=== PATIENT | female | born 1945 | race Caucasian/White ===

== ENCOUNTER 2017-04-30 14:23 | Outpatient (CLI) | payer MEDICARE, OTHER ==
--- NOTE | 2017-04-30 16:57 | XRAY Report ---
ONE VIEW PELVIS, LEFT HIP: 04/30/2017 CLINICAL HISTORY: Hip pain. FINDINGS: The osseous structures are demineralized which does limit full characterization of the bon y cortices. There is no definite acute fracture or focus of destruction. Mild degenerative changes are noted about both hips with early axial migration of the femoral heads r elative to the acetabuli. The SI joint spaces are preserved. The visualized sacral ala are intact. Vascular calcifications are incidental. IMPRESSION: 1. DIFFUSE BONY DEMINERALIZATION DOES LIMIT FULL CHARACTERIZATION OF THE CORTICES. CONSIDER CROSS-SEC TIONAL IMAGING IF THERE IS CONCERN FOR AN OCCULT FRACTURE. 2. MILD DEGENERATIVE CHANGES NOTED ABOVE. JOB #: [id number] EXT JOB #:[id number]
== END 2017-04-30 14:24 | disposition home or self-care (01) ==
LOC: DI.S 14:23
PROVIDERS: ATTEND Nurse Practitioner Family
DX: M16.0 Bilateral primary osteoarthritis of hip (principal); M81.0 Age-related osteoporosis without current pathological fracture

== ENCOUNTER 2017-05-09 10:50 | Outpatient (CLI) | payer MEDICARE, OTHER ==
--- NOTE | 2017-05-09 11:45 | XRAY Report ---
LEFT HIP AND PELVIS: 05/09/2017 CLINICAL INDICATION: Left hip pain. COMPARISON: 04/30/2017. FINDINGS: Frontal view of the hips and pelvis and frogleg lateral view of the left hip demonstrate s table mild osteoarthritis. There is no evidence of fracture. No periosteal reaction is seen. IMPRESSION: STABLE MILD OSTEOARTHRITIS. NO SIGNIFICANT INTERVAL CHANGE. JOB #: [id number] EXT JOB #:[id number]
== END 2017-05-09 10:51 | disposition home or self-care (01) ==
LOC: DI.S 10:50
PROVIDERS: ATTEND Nurse Practitioner Family
DX: M25.552 Pain in left hip (principal); M16.12 Unilateral primary osteoarthritis, left hip

== ENCOUNTER 2017-06-11 09:46 | Outpatient (CLI) | payer MEDICARE, OTHER ==
--- NOTE | 2017-06-11 10:59 | Ultrasound Report ---
RIGHT UPPER QUADRANT ULTRASOUND: 06/11/2017 CLINICAL INDICATION: Pain. TECHNIQUE: Real-time scanning was performed with union representative static images obtained. FINDINGS: The liver measures 14.7 cm. There is focal fatty infiltration at the gallbladder fossa. No intrahepatic biliary dilatation or suspicious mass is seen. The common bile duct measures 5 mm. There is sludge within the gallbladder lumen. No cholelithiasis or wall thickening is seen. No free fluid is present. There was localized tenderness during the examination over the gallbladder. The right kidney measures 9.5 cm, and demonstrates no hydronephrosis. No free fluid is present. IMPRESSION: SLUDGE WITHIN THE GALLBLADDER, BUT NO EVIDENCE OF CHOLELITHIASIS OR BILIARY OBSTRUCTION. JOB #: [id number] EXT JOB #:[id number]
== END 2017-06-11 09:47 | disposition home or self-care (01) ==
LOC: DI 09:46
PROVIDERS: ATTEND Family Medicine
DX: R10.11 Right upper quadrant pain (principal)
CPT/HCPCS: 76705

== ENCOUNTER 2018-06-18 13:56 | Outpatient (CLI) | payer MEDICARE, OTHER ==
--- NOTE | 2018-06-22 15:36 | Mammography Report ---
Reason: SCREENING MAMMO Procedure Date: 06/18/2018 Accession Number: [id number] / [id number] Procedure: SONIYA - Screening Mammo Dig Bilat CPT Code: FULL RESULT: EXAM: Screening Mammo Dig Bilat DATE: 06/18/2018 2:24 PM CLINICAL HISTORY: 72-year-old female presents for screening mammogram. TECHNIQUE: Bilateral CC and MLO views were obtained. COMPARISON: 05/09/2016, 11/02/2013, 07/22/2012, 07/09/2011. FINDINGS: The breasts demonstrate heterogeneously dense fibroglandular parenchyma bilaterally. Coarse typically benign calcifications are seen in the left breast. No suspicious masses, clustered microcalcifications, or regions of architectural distortion are identified. IMPRESSION: Benign findings RECOMMENDATION: Routine annual screening unless otherwise clinically indicated. BIRADS CATEGORY 2: Benign findings STANDARD QUALIFYING STATEMENTS: 1. This examination was not reviewed with the aid of Computer-Aided Detection (CAD). 2. A negative or benign imaging report should not delay biopsy if clinically suspicious findings are present. Consider surgical consultation if warrented. More than 5% of cancers are not identified by imaging. 3. Dense breasts may obscure an underlying neoplasm. 4. This examination was reviewed without the aid of 3D breast imaging (tomosynthesis).
== END 2018-06-18 13:57 | disposition home or self-care (01) ==
LOC: DI 13:56
PROVIDERS: ATTEND Family Medicine
DX: Z12.31 Encounter for screening mammogram for malignant neoplasm of breast (principal)
CPT/HCPCS: 77067

== ENCOUNTER 2019-01-20 12:10 | Outpatient (CLI) | payer MEDICARE, OTHER ==
[2019-01-20 12:30] LABS: BASOPHILS # (AUTO) 0.2 10^3/uL (0.0-0.1); BASOPHILS % (AUTO) 2.2 %; EOSINOPHILS # (AUTO) 0.6 10^3/uL (0.0-0.7); EOSINOPHILS % (AUTO) 6.7 %; HGB - HEMOGLOBIN 14.2 g/dL (12.0-16.0); LYMPHOCYTES % (AUTO) 23.1 %; MEAN CORPUSCULAR HEMOGLOBIN 29.8 pg (27.0-31.0); MEAN CORPUSCULAR VOLUME 90.4 fL (81.0-99.0); MEAN PLATELET VOLUME 8.4 fL (7.9-10.8); MONOCYTES # (AUTO) 0.6 10^3/uL (0.0-1.0); MONOCYTES % (AUTO) 7.3 %; NEUTROPHILS # (AUTO) 5.4 10^3/uL (1.5-6.6); NEUTROPHILS % (AUTO) 60.7 %; PLT - PLATELET COUNT 285 10^3/uL (130-450); RED BLOOD COUNT 4.75 10^6/uL (4.20-5.40); RED CELL DISTRIBUTION WIDTH 13.2 % (12.0-15.0); WHITE BLOOD COUNT 8.8 x10^3/uL (4.8-10.8)
[2019-01-20 12:46] LABS: ALBUMIN 4.1 g/dL (3.2-5.5); ALBUMIN/GLOBULIN RATIO 1.1 (1.0-2.2); BILIRUBIN,TOTAL 0.6 mg/dL (0.2-1.0); CALCIUM 9.5 mg/dL (8.5-10.3); CREATININE 0.8 mg/dL (0.4-1.0)
== END 2019-01-20 12:11 | disposition home or self-care (01) ==
LOC: LAB 12:10
PROVIDERS: ATTEND Internal Medicine Gastroenterology
DX: R10.10 Upper abdominal pain, unspecified (principal)
CPT/HCPCS: 36415; 80053; 83690; 85025

== ENCOUNTER 2019-01-28 08:49 | Outpatient (CLI) | payer MEDICARE, OTHER ==
--- NOTE | 2019-01-28 13:33 | Ultrasound Report ---
Reason: ABDOMINAL PAIN,UPPER UNSPEC Procedure Date: 01/28/2019 Accession Number: [id number] / [id number] Procedure: US - Abdomen Limited CPT Code: FULL RESULT: EXAM: ABDOMEN ULTRASOUND LIMITED, RUQ EXAM DATE: 01/28/2019 08:59 AM. CLINICAL HISTORY: Abdominal pain ,upper unspecified. COMPARISON: ABDOMEN LIMITED 06/11/2017 10:11 AM. TECHNIQUE: Real-time scanning was performed with static images obtained. FINDINGS: Liver: Normal in size and echotexture. 15.1 cm. Main portal vein flow: Hepatopetal. Gallbladder: Normal. No stones, wall thickening, or sonographic Crystal's sign. Biliary System: CBD measures 7 mm. No intrahepatic or extrahepatic ductal dilatation. Other: The visualized portions of the pancreas and the right kidney are grossly unremarkable. IMPRESSION: Normal. No cholelithiasis or cholecystitis. RADIA
== END 2019-01-28 08:50 | disposition home or self-care (01) ==
LOC: DI 08:49
PROVIDERS: ATTEND Internal Medicine Gastroenterology
DX: R10.10 Upper abdominal pain, unspecified (principal)
CPT/HCPCS: 76705

== ENCOUNTER 2019-02-12 08:43 | Outpatient (CLI) | payer MEDICARE, OTHER ==
[2019-02-12] MEDS ORDERED: SINCALIDE 5 MCG VIAL ONE (09:54)
[2019-02-12] MEDS ORDERED: SINCALIDE 1.1 MCG in SODIUM CHLORIDE 0.9% 50 ML IV ONE (12:06)
--- NOTE | 2019-02-12 14:53 | Nuclear Medicine Report ---
Reason: ABDOMINAL PAIN,UPPER,UNSPEC Procedure Date: 02/12/2019 Accession Number: [id number] / [id number] Procedure: NM - Hepatobiliary HIDA w/ Rx CPT Code: FULL RESULT: EXAM: HEPATOBILIARY SCAN WITH CCK/KINEVAC ADMINISTRATION EXAM DATE: 02/12/2019 12:08 PM. CLINICAL HISTORY: ABDOMINAL PAIN,UPPER,UNSPEC. COMPARISON: None. TECHNIQUE: Following the intravenous administration of mCi of Tc99m Mebrofenin, a hepatobiliary scan was done centered on the liver and gallbladder in multiple sequential images and projections. Following the intravenous administration of mcg of CCK/ Kinevac over the course of approximately 60 minutes, dynamic imaging was done and the gallbladder ejection fraction was calculated. FINDINGS: Normal clearance of blood pool activity indicating grossly normal hepatocellular function. Liver size and shape grossly normal. Appearance of tracer in the biliary tree as early as 5-10 minutes, within normal limits. Appearance of tracer in the gallbladder as early as 10-15 minutes, within normal limits, with good progression of filling throughout the remainder of the initial hour. Appearance of tracer in the small bowel as early as 15-20 minutes. Following CCK administration, gallbladder ejection fraction is calculated to be 96%, within the normal range ( No evidence of significant enterogastric bile reflux. IMPRESSION: 1. No scintigraphic evidence of acute cholecystitis. 2. Patent common bile duct. 3. Gallbladder ejection fraction is in the normal range. RADIA ADDENDUM: 02/12/19 16:10 Corrected TECHNIQUE: 1.1 mcg CCK was administered intravenously.
== END 2019-02-12 08:44 | disposition home or self-care (01) ==
LOC: DI 08:43
PROVIDERS: ATTEND Internal Medicine Gastroenterology
DX: R10.10 Upper abdominal pain, unspecified (principal)
CPT/HCPCS: 78227; J7040

== ENCOUNTER 2019-02-20 12:22 | Outpatient (CLI) | payer MEDICARE, OTHER ==
[2019-02-20] MEDS ORDERED: IOVERSOL 320 100 ML VIAL IVP ONE (12:47)
[2019-02-20] MEDS ORDERED: IOVERSOL 320 50 ML VIAL ONE (12:47)
--- NOTE | 2019-02-20 23:13 | CT Report ---
Reason: ABDOMINAL PAIN,UPPER,UNSPEC Procedure Date: 02/20/2019 Accession Number: [id number] / [id number] Procedure: CT - Abdomen/Pelvis W CPT Code: FULL RESULT: EXAM: CT ABDOMEN AND PELVIS EXAM DATE: 02/20/2019 02:12 PM. CLINICAL HISTORY: Upper abdominal pain, unspecified. COMPARISONS: ABDOMEN LIMITED 01/28/2019 8:59 AM. TECHNIQUE: Routine helical CT imaging was performed through the abdomen and pelvis. IV contrast: Yes . Enteric contrast: Yes. Reconstructions: Coronal and sagittal. In accordance with CT protocol optimization, one or more of the following dose reduction techniques were utilized for this exam: automated exposure control, adjustment of mA and/or KV based on patient size, or use of iterative reconstructive technique. FINDINGS: Lung Bases: Unremarkable. Liver: Unremarkable. No suspicious masses. Gallbladder/Bile Ducts: Unremarkable. Spleen: Unremarkable. Pancreas: Unremarkable. Adrenal Glands: Unremarkable. Kidneys: Mild bilateral renal scarring. No suspicious masses or hydronephrosis. Peritoneal Cavity/Bowel: Colonic diverticulosis. No bowel obstruction or inflammatory process seen. No free air or significant free fluid. No masses or adenopathy. The appendix is not seen but there is no evidence of appendicitis. No excessive stool burden. Pelvic Organs: Partially obscured by streak artifact. Post hysterectomy with no adnexal masses seen. The bladder appears within normal limits. Pelvic floor laxity with small rectocele suspected. Vasculature: Severe atherosclerotic disease of the aorta and branches. Mild fusiform aneurysmal dilatation of the infrarenal abdominal aorta up to 28 x 27 mm. Bones: No acute or aggressive appearing abnormality. Previous left hip replacement. Other: None. IMPRESSION: 1. No acute inflammatory or obstructive process seen in the abdomen or pelvis. 2. Severe atherosclerotic disease of the aorta and branches. Mild aneurysmal ectasia of the infrarenal abdominal aorta to 2.8 cm. 3. Colonic diverticulosis. 4. Probable previous hysterectomy. RADIA
== END 2019-02-20 12:23 | disposition home or self-care (01) ==
LOC: DI 12:22
PROVIDERS: ATTEND Internal Medicine Gastroenterology
DX: R10.10 Upper abdominal pain, unspecified (principal); I70.0 Atherosclerosis of aorta; I71.4 Abdominal aortic aneurysm, without rupture; K57.30 Diverticulosis of large intestine without perforation or abscess without bleeding
CPT/HCPCS: 74177; Q9967

== ENCOUNTER 2019-07-15 09:59 | Outpatient (CLI) | payer MEDICARE, OTHER, MEDICAID ==
--- NOTE | 2019-07-16 13:45 | Mammography Report ---
Reason: SCREENING MAMMO Procedure Date: 07/15/2019 Accession Number: [id number] / [id number] Procedure: MGS - Screening Mammo Dig Bilat CPT Code: Final Report FULL RESULT: EXAM: Screening Mammo Dig Bilat DATE: 07/15/2019 10:59 AM CLINICAL HISTORY: Routine screening TECHNIQUE: (B) - Bilateral CC and MLO views were obtained. COMPARISON: 06/18/2018, 05/09/2016, 11/02/2013, 07/22/2012, 07/09/2011 PARENCHYMAL PATTERN: (D) - The breasts demonstrate heterogeneously dense fibroglandular parenchyma bilaterally. FINDINGS: No significant interval change. There are no suspicious masses, calcifications, or areas of distortion. IMPRESSION: Negative examination. BI-RADS category 1. RECOMMENDATION: (ANNUAL) - Recommend routine annual screening mammography. BI-RADS CATEGORY: (1) - Negative. STANDARD QUALIFYING STATEMENTS: 1. This examination was not reviewed with the aid of Computer-Aided Detection (CAD). 2. A negative or benign imaging report should not preclude biopsy if clinically suspicious findings are present. 3. Dense breasts may obscure an underlying neoplasm. 4. This examination was reviewed without the aid of 3D breast imaging (tomosynthesis).
== END 2019-07-15 10:00 | disposition home or self-care (01) ==
LOC: DI.S 09:59
PROVIDERS: ATTEND Family Medicine
DX: Z12.31 Encounter for screening mammogram for malignant neoplasm of breast (principal)
CPT/HCPCS: 77067

== ENCOUNTER 2019-07-15 10:25 | Outpatient (CLI) | payer MEDICARE, OTHER, MEDICAID ==
[2019-07-15 18:17] LABS: ALBUMIN 4.3 g/dL (3.2-5.5); ALBUMIN/GLOBULIN RATIO 1.3 (1.0-2.2); BILIRUBIN,TOTAL 0.7 mg/dL (0.2-1.0); CALCIUM 9.3 mg/dL (8.5-10.3); CREATININE 0.8 mg/dL (0.4-1.0); TOTAL PROTEIN 7.5 g/dL (6.7-8.2)
== END 2019-07-15 10:26 | disposition home or self-care (01) ==
LOC: LAB.S 10:25
PROVIDERS: ATTEND Internal Medicine Cardiovascular Disease
DX: I73.9 Peripheral vascular disease, unspecified (principal)
CPT/HCPCS: 36415; 80053; 80061; 82550; 83721

== ENCOUNTER 2021-01-04 15:06 | Outpatient (CLI) | payer MEDICARE, OTHER, MEDICAID ==
--- NOTE | 2021-01-05 11:57 | Ultrasound Report ---
PROCEDURE: Duplex Ext Veins Right INDICATIONS: PAIN IN RT LOWER LEG, LYMPEDEMA TECHNIQUE: Real-time imaging, as well as color and pulse Doppler interrogation, were performed of the right lowe r extremity deep veins from the inguinal ligament to the popliteal fossa. COMPARISON: 04/06/2014. FINDINGS: The deep veins are normally compressible, and free of intraluminal thrombus. Color and pu lse Doppler demonstrate normal phasic intraluminal flow. There is normal augmentation response to di stal compression maneuver. IMPRESSION: No evidence of deep vein thrombosis involving the right lower extremity. Reviewed by: Ashley Johnson MD, PhD on 01/05/2021 11:55 AM PDT Approved by: Ashley Johnson MD, PhD on 01/05/2021 11:55 AM PDT Station ID: [id number]
== END 2021-01-04 15:07 | disposition home or self-care (01) ==
LOC: DI 15:06
PROVIDERS: ATTEND Physician Assistant Medical
DX: M79.661 Pain in right lower leg (principal); I89.0 Lymphedema, not elsewhere classified

== ENCOUNTER 2021-03-20 13:04 | Outpatient (CLI) | payer MEDICARE, OTHER, MEDICAID | END 2021-03-20 13:05 | disposition EMS.NT | LOC: EMS 13:04 | DX: I10 Essential (primary) hypertension (principal) ==

== ENCOUNTER 2021-04-03 14:13 | Outpatient (CLI) | payer MEDICARE, OTHER, MEDICAID ==
[2021-04-03 20:45] LABS: CALCIUM 9.9 mg/dL (8.5-10.3); CREATININE 1.4 mg/dL (0.4-1.0); POTASSIUM 3.7 mmol/L (3.5-5.0)
== END 2021-04-03 14:14 | disposition home or self-care (01) ==
LOC: LAB.S 14:13
PROVIDERS: ATTEND Internal Medicine
DX: N18.31 Chronic kidney disease, stage 3a (principal)
CPT/HCPCS: 36415; 80048

== ENCOUNTER 2021-06-08 09:23 | Outpatient (CLI) | payer MEDICARE, OTHER, MEDICAID ==
[2021-06-08 14:42] LABS: CALCIUM 9.5 mg/dL (8.5-10.3); CREATININE 1.4 mg/dL (0.4-1.0); POTASSIUM 3.8 mmol/L (3.5-5.0)
== END 2021-06-08 09:24 | disposition home or self-care (01) ==
LOC: LAB.S 09:23
PROVIDERS: ATTEND Internal Medicine
DX: E87.1 Hypo-osmolality and hyponatremia (principal)
CPT/HCPCS: 36415; 80048

== ENCOUNTER 2021-06-20 10:51 | Outpatient (CLI) | payer MEDICARE, OTHER, MEDICAID ==
--- NOTE | 2021-06-21 11:49 | Mammography Report ---
BILATERAL DIGITAL SCREENING MAMMOGRAM 3D/2D: 06/20/2021 CLINICAL: Routine screening. Comparison is made to exams dated: 07/15/2019 mammogram, 06/18/2018 mammogram, and 05/09/2016 mammogra m - [facility]. The tissue of both breasts is heterogeneously dense. This may lowe r the sensitivity of mammography. There is a benign calcification in the left breast. No significant masses, calcifications, or other findings are seen in either breast. There has been no significant interval change. IMPRESSION: BENIGN There is no mammographic evidence of malignancy. A 1 year screening mammogram is recommended. This exam was interpreted at Station ID: [id number]. NOTE: For mammograms, a report in lay terms will be sent to the patient. Approximately 15% of breast malignancies will not be visualized mammographically. In the management of a palpable breast mass, a negative mammogram must not discourage biopsy of a clinically suspicious lesion. Electronically Signed By: Osito Morrow M.D. [email or web address]/[email or web address]:06/20/2021 16:19:32 ACR BI-RADS Category 2: Benign Finding(s) 3342F PARENCHYMAL PATTERN: (D) - The breast(s) demonstrate(s) heterogeneously dense fibroglandular parenchy ma. BI-RADS CATEGORY: (2) - 2 RECOMMENDATION: (ANNUAL) - Recommend routine annual screening mammography. [id number] 1 year screening LATERALITY: (B)
== END 2021-06-20 10:52 | disposition home or self-care (01) ==
LOC: DI.S 10:51
DX: Z12.31 Encounter for screening mammogram for malignant neoplasm of breast (principal)

== ENCOUNTER 2021-10-25 08:35 | Outpatient (CLI) | payer MEDICARE, OTHER, MEDICAID ==
[2021-10-25 15:22] LABS: ALBUMIN 3.7 g/dL (3.2-5.5); BILIRUBIN,TOTAL 0.3 mg/dL (0.2-1.0); CALCIUM 9.5 mg/dL (8.5-10.3); CREATININE 1.6 mg/dL (0.4-1.0); POTASSIUM 4.2 mmol/L (3.5-5.0); TOTAL PROTEIN 7.4 g/dL (6.7-8.2)
[2021-10-25 19:52] LABS: ESTIMATED AVERAGE GLUCOSE 134 mg/dL (70-100); HEMOGLOBIN A1c% 6.3 % (4.27-6.07)
== END 2021-10-25 08:36 | disposition home or self-care (01) ==
LOC: LAB.S 08:35
PROVIDERS: ATTEND Family Medicine
DX: E11.22 Type 2 diabetes mellitus with diabetic chronic kidney disease (principal); N18.9 Chronic kidney disease, unspecified
CPT/HCPCS: 36415; 80053; 83036

== ENCOUNTER 2021-11-30 12:30 | Outpatient (CLI) | payer MEDICARE, OTHER ==
--- NOTE | 2021-11-30 13:23 | DEXA Report ---
PROCEDURE: Dexa Spine and/or Hip INDICATIONS: OSTEOPOROSIS WITHOUT CURRENT FRACTURE TECHNIQUE: Dual energy x-ray absorptiometry (DXA) was performed on a [employer] System. Regions measur ed are the AP Spine, femoral neck, and if needed forearm. COMPARISON: None. FINDINGS: Lumbar Spine: Bone Mineral Density 1.011 g/cm/cm,T score -1.5, osteopenia Left forearm: Bone Mineral Density 0.629 g/cm/cm, T score -2.8, osteoporosis (T score greater or equal to -1.0: NORMAL) (T score from -1.1 to -2.4: OSTEOPENIA) (T score less than or equal to -2.5 to: OSTEOPOROSIS) Impression: Bone mineral density as detailed above. Patients with diagnosis of osteoporosis or osteopenia should have regular bone mineral density assess ment. For those eligible for Medicare, routine testing is allowed once every 2 years. Testing frequ ency can be increased for patients who have rapidly progressing disease or for those who are receivin g medical therapy to restore bone mass. Reviewed by: Sukhwinder Lazcano MD on 11/30/2021 1:21 PM PDT Approved by: Sukhwinder Lazcano MD on 11/30/2021 1:21 PM PDT Station ID: [id number]
== END 2021-11-30 12:31 | disposition home or self-care (01) ==
LOC: DI 12:30
PROVIDERS: ATTEND Nurse Practitioner Family
DX: M81.0 Age-related osteoporosis without current pathological fracture (principal)

== ENCOUNTER 2022-02-08 12:17 | Outpatient (CLI) | payer MEDICARE, MEDICAID ==
[2022-02-08 16:16] LABS: ALBUMIN 4.5 g/dL (3.2-5.5); CALCIUM 9.9 mg/dL (8.5-10.3); CREATININE 1.5 mg/dL (0.4-1.0); PHOSPHORUS 3.4 mg/dL (2.5-4.6); POTASSIUM 4.2 mmol/L (3.5-5.0)
[2022-02-08 16:28] LABS: CREATININE,URINE 31.2 mg/dL
[2022-02-08 16:30] LABS: TOTAL PROTEIN,URINE TIMED < 6 mg/dL
== END 2022-02-08 12:18 | disposition home or self-care (01) ==
LOC: LAB.S 12:17
PROVIDERS: ATTEND Internal Medicine Nephrology
DX: N18.32 Chronic kidney disease, stage 3b (principal)
CPT/HCPCS: 36415; 80069; 82570; 84156; 84244

== ENCOUNTER 2022-07-05 14:03 | Outpatient (CLI) | payer MEDICARE ==
[2022-07-05 19:48] LABS: CALCIUM 9.8 mg/dL (8.5-10.3); CREATININE 1.4 mg/dL (0.4-1.0); POTASSIUM 3.7 mmol/L (3.5-5.0)
== END 2022-07-05 14:04 | disposition home or self-care (01) ==
LOC: LAB.S 14:03
PROVIDERS: ATTEND Internal Medicine
DX: E87.1 Hypo-osmolality and hyponatremia (principal)
CPT/HCPCS: 36415; 80048

== ENCOUNTER 2022-08-27 12:45 | Outpatient (CLI) | payer MEDICARE, OTHER ==
--- NOTE | 2022-08-28 11:55 | Ultrasound Report ---
LIMITED ULTRASOUND OF LEFT BREAST: 08/27/2022 CLINICAL: Palpable left breast lump. Comparison is made to exams dated: 08/27/2022 mammogram, 06/20/2021 mammogram, 07/15/2019 mammogram, 06/18/2018 mammogram, 05/09/2016 mammogram, and 11/02/2013 mammogram - [facility]. Ultrasound of the left breast upper outer quadrant was performed. Stark scale images of the real-sadie e examination were reviewed. IMPRESSION: NEGATIVE There is no sonographic evidence of malignancy. There is no abnormality seen in the left breast to correspond with the area of clinical concern and m ammography finding in the upper outer quadrant, however, clinical correlation and clinical followup a re recommended. Patient was advised to return for imaging if symptoms get worse or if she feels a di screte palpable lump, which was not described today. Return to annual mammogram screening schedule is recommended. This exam was interpreted at Station ID: [id number]. Electronically Signed By: Danis Donovan M.D. lc/:08/27/2022 14:08:50 Ultrasound BI-RADS: 1 Negative BI-RADS CATEGORY: (1) - 1 Mammogram [id number] return to screening LATERALITY: (B)
--- NOTE | 2022-08-28 11:55 | Mammography Report ---
BILATERAL DIGITAL DIAGNOSTIC MAMMOGRAM 3D/2D WITH SPOT COMPRESSION: 08/27/2022 CLINICAL: Palpable left breast lump. Comparison is made to exams dated: 06/20/2021 mammogram, 07/15/2019 mammogram, 06/18/2018 mammogram, mammogram, and 11/02/2013 mammogram - [facility]. Both breasts are heterogeneously dense, which may obscure small masses (category c / 51-75% glandular tissue). There is a stable 1.1 cm oval fat containing mass with a circumscribed margin in the left breast at 1 o'clock posterior depth. This correlates as palpated. No other significant masses, calcifications, or other findings are seen in either breast. IMPRESSION: INCOMPLETE: NEEDS ADDITIONAL IMAGING EVALUATION The stable 1.1 cm oval fat containing mass in the left breast resembles a lymph node and is indetermi noel. An ultrasound is recommended. Based on the Tyrer Cuzick model (a risk assessment model) the patients lifetime risk is 2.8% and her 10 year risk is 2.5%. According to the ACR, ACS, and NCCN guidelines, an annual breast MRI exam ryan g with mammogram is recommended if the patients lifetime risk is 20% or greater. This exam was interpreted at Station ID: [id number]. NOTE: For mammograms, a report in lay terms will be sent to the patient. Approximately 15% of breast malignancies will not be visualized mammographically. In the management of a palpable breast mass, a negative mammogram must not discourage biopsy of a clinically suspicious lesion. Electronically Signed By: Danis Donovan M.D. lc/:08/27/2022 14:06:41 ACR BI-RADS Category 0: Incomplete 3340F PARENCHYMAL PATTERN: (D) - The breast(s) demonstrate(s) heterogeneously dense fibroglandular parenchy ma. BI-RADS CATEGORY: (0) - 0 Ultrasound [id number] Immediate follow-up LATERALITY: (B)
== END 2022-08-27 23:59 | disposition home or self-care (01) ==
LOC: DI 12:45
PROVIDERS: ATTEND Nurse Practitioner Family
DX: N63.21 Unspecified lump in the left breast, upper outer quadrant (principal)

== ENCOUNTER 2022-10-15 10:23 | Outpatient (CLI) | payer MEDICARE ==
--- NOTE | 2022-10-15 14:54 | XRAY Report ---
PROCEDURE: Hips 2V BILAT INDICATIONS: POST OP ASSESSMENT TECHNIQUE: 9 views of the hip were acquired. COMPARISON: CT abdomen pelvis 02/20/2019. FINDINGS: Bones: Right femur intramedullary manny with screw fixation. No conspicuous fracture. Left hip arthrop lasty is stable. No periprosthetic lucency to suggest loosening or infection. No dislocations. No perkins spicious bony lesions. The visualized pelvic ring appears intact. Arteriovascular calcifications. Soft tissues: No suspicious soft tissue calcifications or masses. IMPRESSION: Expected appearance of the right femur intramedullary manny and screw fixation. Stable left hip arthroplasty. Reviewed by: Roman Arredondo MD on 10/15/2022 2:52 PM PST Approved by: Roman Arredondo MD on 10/15/2022 2:52 PM PST Station ID: [id number]
== END 2022-10-15 10:24 | disposition home or self-care (01) ==
LOC: DI.S 10:23
PROVIDERS: ATTEND Orthopaedic Surgery
DX: Z09 Encounter for follow-up examination after completed treatment for conditions other than malignant neoplasm (principal); Z96.642 Presence of left artificial hip joint

== ENCOUNTER 2023-03-24 08:47 | Outpatient (CLI) | payer MEDICAID, MEDICARE ==
--- NOTE | 2023-03-24 10:38 | Ultrasound Report ---
PROCEDURE: Retroperitoneal Limited INDICATIONS: AAA TECHNIQUE: Real time scanning was performed of the aorta and iliac arteries, with image documentatio n. COMPARISON: None. FINDINGS: Aorta: Proximal aortic diameter measures 2.4 x 2.5 cm. Mid-aorta measures 2.0 x 2.0 cm. Distal aor tic diameter is 2.8 x 2.8 cm. Iliac arteries: Right common iliac artery measures 1.0 x 1.2 cm. Left common iliac artery measures 0.8 x 0.8 cm. IMPRESSION: Ectatic infrarenal aorta measuring 2.8 cm. Recommended intervals for follow-up imaging of ectatic aortas and abdominal aortic aneurysms, per ACR consensus guidelines: 2.5-2.9 cm: 5 years 3.0-3.4 cm: 3 years 3.5-3.9 cm: 2 years 4.0-4.4 cm: 1 year 4.5-4.9 cm: 6 months + endovascular referral 5.0-5.5 cm: 3-6 months + endovascular referral Reviewed by: Brannon Rangel on 03/24/2023 10:37 AM PDT Approved by: Brannon Rangel on 03/24/2023 10:37 AM PDT Station ID: [id number]
== END 2023-03-24 08:48 | disposition home or self-care (01) ==
LOC: DI 08:47
PROVIDERS: ATTEND Nurse Practitioner Family
DX: I77.811 Abdominal aortic ectasia (principal)

== ENCOUNTER 2023-05-07 14:18 | Outpatient (CLI) | payer MEDICARE ==
[2023-05-07 19:39] LABS: BASOPHILS # (AUTO) 0.1 10^3/uL (0.0-0.1); BASOPHILS % (AUTO) 1.4 %; EOSINOPHILS # (AUTO) 0.2 10^3/uL (0.0-0.7); EOSINOPHILS % (AUTO) 2.6 %; HCT - HEMATOCRIT 34.5 % (37.0-47.0); LYMPHOCYTES % (AUTO) 22.6 %; MEAN CORPUSCULAR HEMOGLOBIN 29.3 pg (27.0-31.0); MEAN CORPUSCULAR HGB CONC 31.9 g/dL (32.0-36.0); MEAN PLATELET VOLUME 9.9 fL (7.9-10.8); MONOCYTES # (AUTO) 0.6 10^3/uL (0.0-1.0); MONOCYTES % (AUTO) 6.8 %; NEUTROPHILS # (AUTO) 5.8 10^3/uL (1.5-6.6); NEUTROPHILS % (AUTO) 66.5 %; PLT - PLATELET COUNT 304 10^3/uL (130-450); RED BLOOD COUNT 3.75 10^6/uL (4.20-5.40); RED CELL DISTRIBUTION WIDTH 14.2 % (12.0-15.0); WHITE BLOOD COUNT 8.8 x10^3/uL (4.8-10.8)
[2023-05-07 20:26] LABS: ALBUMIN 4.3 g/dL (3.2-5.5); ALBUMIN/GLOBULIN RATIO 1.4 (1.0-2.2); ALKALINE PHOSPHATASE 64 IU/L (42-121); ALT ALANINE AMINOTRANSFERASE 11 IU/L (10-60); AST ASPARTATE AMINOTRANSFERASE 19 IU/L (10-42); BILIRUBIN,TOTAL 0.4 mg/dL (0.2-1.0); BUN - BLOOD UREA NITROGEN 16 mg/dL (6-20); CALCIUM 9.5 mg/dL (8.5-10.3); CARBON DIOXIDE - CO2 23 mmol/L (21-32); CHLORIDE 98 mmol/L (101-111); CHOL/HDL RATIO 2.2 (<4.4); CHOLESTEROL 134 mg/dL; CREATININE 1.2 mg/dL (0.6-1.3); GFR - MDRD 44 (>89); GLUCOSE 112 mg/dL (74-104); HDL CHOLESTEROL 60 mg/dL; LDL CHOLESTEROL,CALCULATED 46 mg/dL; LDL/HDL RATIO 0.8 (<4.4); POTASSIUM 3.4 mmol/L (3.5-4.5); SODIUM 131 mmol/L (135-145); TOTAL PROTEIN 7.4 g/dL (6.4-8.9); TRIGLYCERIDES 138 mg/dL (48-352); URIC ACID 3.4 mg/dL (2.3-6.6); VLDL CHOLESTEROL 28 mg/dL
[2023-05-07 20:38] LABS: THYROID STIMULATING HORMONE 0.51 uIU/mL (0.34-5.60)
[2023-05-07 21:35] LABS: ESTIMATED AVERAGE GLUCOSE 134 mg/dL (70-100); HEMOGLOBIN A1c% 6.3 % (4.27-6.07)
== END 2023-05-07 14:19 | disposition home or self-care (01) ==
LOC: LAB.S 14:18
PROVIDERS: ATTEND Nurse Practitioner Family
DX: I10 Essential (primary) hypertension (principal); E11.9 Type 2 diabetes mellitus without complications; M10.9 Gout, unspecified; M81.0 Age-related osteoporosis without current pathological fracture; E78.5 Hyperlipidemia, unspecified
CPT/HCPCS: 36415; 80053; 80061; 82043; 82306; 82570; 83036; 83721; 84443; 84550; 85025

== ENCOUNTER 2023-08-29 07:00 | Outpatient (CLI) | payer MEDICARE ==
--- NOTE | 2023-08-29 22:28 | XRAY Report ---
PROCEDURE: Hand 3 View RT INDICATIONS: RIGHT HAND JOINT PAIN TECHNIQUE: 3 views of the hand(s) acquired. COMPARISON: None. FINDINGS: Bones: No fractures or dislocations. No suspicious bony lesions. Diffuse osteopenia. Remote first carpal bone resection. Degenerative arthritis involving the thumb MCP and IP joints as well as the se cond and third DIP joints. Soft tissues: No suspicious soft tissue calcifications or masses. IMPRESSION: 1. No acute bony abnormality. 2. Remote first carpal bone resection. 3. Diffuse osteopenia. 4. Degenerative arthritis involving the thumb and second and third joints. Reviewed by: Jose Luis Rodríguez MD on 08/29/2023 10:27 PM PST Approved by: Jose Luis Rodríguez MD on 08/29/2023 10:27 PM PST Station ID: [id number]
== END 2023-08-29 23:59 | disposition home or self-care (01) ==
LOC: DI.S 07:00
PROVIDERS: ATTEND Registered Nurse
DX: M19.041 Primary osteoarthritis, right hand (principal); M18.11 Unilateral primary osteoarthritis of first carpometacarpal joint, right hand; M85.841 Other specified disorders of bone density and structure, right hand

== ENCOUNTER 2023-10-01 14:09 | Outpatient (CLI) | payer MEDICARE ==
--- NOTE | 2023-10-02 11:48 | Mammography Report ---
BILATERAL DIGITAL SCREENING MAMMOGRAM 3D/2D: 10/01/2023 CLINICAL: Routine screening. Comparison is made to exams dated: 08/27/2022 mammogram, 06/20/2021 mammogram, 07/15/2019 mammogram, and 06/18/2018 mammogram - [facility]. Both breasts are heterogeneously dense, which may obscure small masses (category c / 51-75% glandular tissue). No significant masses, calcifications, or other findings are seen in either breast. There has been no significant interval change. IMPRESSION: NEGATIVE There is no mammographic evidence of malignancy. A 1 year screening mammogram is recommended. Based on the Tyrer Cuzick model (a risk assessment model) the patients lifetime risk is 2.5% and her 10 year risk is 2.5%. According to the ACR, ACS, and NCCN guidelines, an annual breast MRI exam along with mammogram is recommended if the patients lifetime risk is 20% or greater. This exam was interpreted at Station ID: [id number]. NOTE: For mammograms, a report in lay terms will be sent to the patient. Approximately 15% of breast malignancies will not be visualized mammographically. In the management of a palpable breast mass, a negative mammogram must not discourage biopsy of a clinically suspicious lesion. Electronically Signed By: Sravani shi/jimy:10/01/2023 16:53:16 letter sent: No_Letter ACR BI-RADS Category 1: Negative 3341F PARENCHYMAL PATTERN: (D) - The breast(s) demonstrate(s) heterogeneously dense fibroglandular calvin peterson. BI-RADS CATEGORY: (1) - 1 Mammogram [id number] 1 year screening LATERALITY: (B)
== END 2023-10-01 14:10 | disposition home or self-care (01) ==
LOC: DI.S 14:09
PROVIDERS: ATTEND Nurse Practitioner Family
DX: Z12.31 Encounter for screening mammogram for malignant neoplasm of breast (principal); R92.333 Mammographic heterogeneous density, bilateral breasts

== ENCOUNTER 2023-11-21 09:58 | Outpatient (CLI) | payer MEDICARE ==
[2023-11-21 16:04] LABS: CALCIUM 9.8 mg/dL (8.5-10.3); CREATININE 1.4 mg/dL (0.6-1.3); POTASSIUM 4.4 mmol/L (3.5-4.5)
[2023-11-21 21:53] LABS: ESTIMATED AVERAGE GLUCOSE 131 mg/dL (70-100); HEMOGLOBIN A1c% 6.2 % (4.27-6.07)
== END 2023-11-21 09:59 | disposition home or self-care (01) ==
LOC: LAB.S 09:58
PROVIDERS: ATTEND Nurse Practitioner Family
DX: I10 Essential (primary) hypertension (principal); E11.9 Type 2 diabetes mellitus without complications
CPT/HCPCS: 36415; 80048; 83036